=== PATIENT | female | born 1950 | race Caucasian/White ===

== ENCOUNTER 2016-12-30 10:11 | Outpatient (CLI) | payer OTHER ==
[2016-12-30 12:06] LABS: #Basophils 0.1 thou/uL (0.0-0.2); #Eosinphils 0.7 thou/uL (0.0-0.7); #Lymphocytes 3.4 thou/uL (1.20-3.40); #Monocytes 0.9 thou/uL (0.11-0.59); #Neutrophils 4.2 thou/uL (1.40-6.50); %Basophils 0.9 % (0.0-1.0); %Eosinophils 7.5 % (0.0-10.0); %Monocytes 9.3 % (0.0-10.0); Hematocrit 46.9 % (36.0-47.0); Mean Platelet Volume 7.3 fL (7.4-10.4); Red Blood Cell (RBC) Count 5.09 mill/uL (4.20-5.40); White Blood Cell (WBC) Count 9.3 thou/uL (4.8-10.8)
[2016-12-30 12:30] LABS: ALT (SGPT) 18 U/L (0-55); AST (SGOT) 14 U/L (5-34); Alkaline Phosphatase 87 U/L (40-150); Anion Gap 14 mmol/L (10-20); BUN (Urea Nitrogen) 20 mg/dL (9.8-20.1); Bilirubin, Total 0.6 mg/dL (0.2-1.2); Calc. Creatinine Clearance 0 mL/min (70-130); Calcium 10.5 mg/dL (7.8-10.44); Carbon Dioxide 24 mmol/L (23-31); Chloride 108 mmol/L (98-107); Estimated GFR-MDRD 69; Globulin 2.4 g/dL (2.4-3.5); LDL Cholesterol, Calculated 164 mg/dL; Protein, Total 7.1 g/dL (5.8-8.1)
== END 2016-12-30 10:12 | disposition home or self-care (01) ==
LOC: HPCALD 10:11
PROVIDERS: ATTEND Family Medicine
DX: E03.9 Hypothyroidism, unspecified (principal); I10 Essential (primary) hypertension
CPT/HCPCS: 36415; 80053; 80061; 84443; 85025

== ENCOUNTER 2017-06-18 16:32 | Outpatient (CLI) | payer OTHER | END 2017-06-18 16:33 | disposition home or self-care (01) | LOC: HPCALD 16:32 | PROVIDERS: ATTEND Family Medicine | DX: E03.9 Hypothyroidism, unspecified (principal) | CPT/HCPCS: 36415; 84443 ==

== ENCOUNTER 2017-10-22 14:13 | Outpatient (CLI) | payer OTHER ==
[2017-10-22 18:06] LABS: Thyroid Stimulating Hormone 2.758 uIU/mL (0.35-4.94)
[2017-10-23 04:42] LABS: Anion Gap 16 mmol/L (10-20); BUN (Urea Nitrogen) 19 mg/dL (9.8-20.1); Calc. Creatinine Clearance 0 mL/min (70-130); Calcium 11.4 mg/dL (7.8-10.44); Carbon Dioxide 25 mmol/L (23-31); Chloride 103 mmol/L (98-107); Estimated GFR-MDRD 62; Glucose 95 mg/dL (80-115); Potassium 4.8 mmol/L (3.5-5.1); Sodium 139 mmol/L (136-145)
== END 2017-10-22 14:14 | disposition home or self-care (01) ==
LOC: BUREKG 14:13
PROVIDERS: ATTEND Family Medicine
DX: E03.9 Hypothyroidism, unspecified (principal); I10 Essential (primary) hypertension; R00.2 Palpitations
CPT/HCPCS: 36415; 80048; 84439; 84443; 84481; 93005; 93010

== ENCOUNTER 2018-08-27 11:58 | Outpatient (CLI) | payer MEDICARE ==
--- NOTE | 2018-08-27 22:26 | RAD ---
CHEST TWO VIEWS: 08/27/18 Comparison is made with the 12/17/10 study. The heart is normal in size. There is no vascular congestion or edema. There was no focal pneumonia s een. No effusions are present. The mediastinum was unremarkable. IMPRESSION: No acute thoracic finding. POS: HOME
== END 2018-08-27 11:59 | disposition home or self-care (01) ==
LOC: BURRAD 11:58
PROVIDERS: ATTEND Physician Assistant
DX: R50.81 Fever presenting with conditions classified elsewhere (principal)
CPT/HCPCS: 71046

== ENCOUNTER 2023-04-02 15:17 | Emergency (ER) | payer MEDICARE | END 2023-04-02 15:39 | disposition home or self-care (01) | LOC: BURERS 15:17 | DX: N61.0 Mastitis without abscess (principal); I10 Essential (primary) hypertension | CPT/HCPCS: 99282 ==